=== PATIENT | female | born 1985 | race Caucasian/White ===

== ENCOUNTER 2021-04-01 14:15 | Observation (INO) | payer OTHER ==
[2021-04-01 15:34] LABS: Bilirubin Neg (Negative); Blood, Urine Negative (Negative); Clarity Slightly Cloudy (Clear); Glucose, Urine (Dipstick) Normal (Negative); Ketone, Urine 50 mg/dL (Negative); Leukocyte 25 (Negative); Nitrite Negative (Negative); Protein, Urine (Dipstick) 15 mg/dl (Neg-Trace); Specific Gravity, Urine 1.005 (1.002-1.036); Urobilinogen Normal mg/dL (Less than 2)
[2021-04-01 15:36] LABS: #Monocytes 0.4 10x3/uL (0.0-1.1); #Neutrophils 6.3 10x3/uL (1.5-8.4); %Basophils 0.3 % (0.0-2.0); %Eosinophils 0.1 % (0.0-6.0); %Lymphocytes 13.5 % (18.0-47.0); %Monocytes 4.8 % (0.0-10.0); %Neutrophils 79.9 % (40.0-75.0); Hemoglobin 13.8 g/dL (12.0-15.5); Mean Corpuscular HGB CONC 33.6 g/dL (32.0-36.0); Mean Corpuscular Hemoglobin 30.1 pg (27.0-33.0); Mean Corpuscular Volume 89.5 fl (81.6-98.3); Mean Platelet Volume 10.6 fl (7.4-10.4); Platelet Count 191 10x3/uL (150-450); RBC Distribution Width 13.5 % (11.5-14.5); Red Blood Cell (RBC) Count 4.59 10x6/uL (3.90-5.03); White Blood Cell (WBC) Count 7.9 10x3/uL (3.5-10.5)
[2021-04-01] MEDS ORDERED: Ondansetron ODT 4 MG TAB PO PRN (15:36)
[2021-04-01] MEDS ORDERED: hydrALAZINE 20 MG/ML VIAL SLOW IVP PRN (15:36)
[2021-04-01 15:43] LABS: Bacteria/HPF Rare-Few HPF (None Seen); Mucous/LPF Rare LPF (<2+); RBC/HPF 0-3 HPF (0-3); Transitional Epithelial 0-3 HPF (None Seen); WBC/HPF 0-3 HPF (0-3)
[2021-04-01 15:49] LABS: ALT (SGPT) 259 U/L (8-55); AST (SGOT) 218 U/L (5-34); Albumin 3.1 g/dL (3.5-5.0); Alkaline Phosphatase 168 U/L (40-110); Anion Gap 15 mmol/L (10-20); BUN (Urea Nitrogen) 8 mg/dL (7.0-18.7); Bilirubin, Total 0.5 mg/dL (0.2-1.2); Calc. Creatinine Clearance 0 mL/min (70-130); Calcium 8.9 mg/dL (7.8-10.44); Carbon Dioxide 22 mmol/L (22-29); Chloride 101 mmol/L (98-107); Globulin 3.2 g/dL (2.4-3.5); Glucose 89 mg/dL (70-105); Magnesium 1.5 mg/dL (1.6-2.6); Potassium 3.9 mmol/L (3.5-5.1); Protein, Total 6.3 g/dL (6.0-8.3); Sodium 134 mmol/L (136-145)
[2021-04-01] MEDS ORDERED: Ventolin HFA Inhaler 60 PUFF INHALER INH PRN (16:04)
[2021-04-01] MEDS ORDERED: guaiFENesin/Codeine Phosphate 100 mg/10 mg 5 ml UD Cup PO PRN (16:04)
[2021-04-01] MEDS ORDERED: Magnesium 2 GM/50 ML 2 GM in Premix Bag 1 BAG IVPB SCH (20:00)
[2021-04-01 20:22] VITALS: BMI 39.5
[2021-04-01] MEDS: Acetaminophen 325 MG TAB PO PRN (20:58)
[2021-04-01] MEDS ORDERED: guaiFENesin/Dextromethorphan 10 ML UDCUP PO PRN (21:17)
[2021-04-01] MEDS: Benzonatate 100 MG CAP PO PRN (21:55)
[2021-04-02] MEDS ORDERED: Dexamethasone 4 mg/ml Vial IM SCH ×2 (00:30→09:00)
[2021-04-02] MEDS: Acetaminophen 325 MG TAB PO PRN ×3 (05:29→22:15)
[2021-04-02] MEDS: Benzonatate 100 MG CAP PO PRN ×2 (05:30→22:58)
[2021-04-02 06:20] LABS: ALT (SGPT) 227 U/L (8-55); AST (SGOT) 183 U/L (5-34); Albumin 2.9 g/dL (3.5-5.0); Alkaline Phosphatase 170 U/L (40-110); Anion Gap 14 mmol/L (10-20); BUN (Urea Nitrogen) 6 mg/dL (7.0-18.7); Bilirubin, Total 0.6 mg/dL (0.2-1.2); Calc. Creatinine Clearance 205 mL/min (70-130); Calcium 8.3 mg/dL (7.8-10.44); Carbon Dioxide 18 mmol/L (22-29); Chloride 108 mmol/L (98-107); Globulin 2.9 g/dL (2.4-3.5); Glucose 133 mg/dL (70-105); Magnesium 1.9 mg/dL (1.6-2.6); Potassium 3.8 mmol/L (3.5-5.1); Protein, Total 5.8 g/dL (6.0-8.3); Sodium 136 mmol/L (136-145)
[2021-04-02] MEDS: Enoxaparin Sodium 40 MG/0.4 ML SYRINGE SC SCH (08:18)
[2021-04-02] MEDS: Azithromycin 250 MG TAB PO SCH (08:18)
[2021-04-02] MEDS ORDERED: Fluconazole 100 MG TAB PO SCH (18:00)
[2021-04-02] MEDS ORDERED: Docusate Calcium (SURFAK) 240 MG CAP PO PRN (18:04)
[2021-04-02] MEDS ORDERED: HYDROcodone/Acetaminophen 5/325 mg Tablet PO SCH (18:30)
[2021-04-02] MEDS ORDERED: HYDROcodone/Acetaminophen 5/325 mg Tablet PO PRN (18:45)
[2021-04-02] MEDS ORDERED: Insulin Regular 300 UNITS/3 ML VIAL SC SCH (21:30)
[2021-04-03] MEDS: Acetaminophen 325 MG TAB PO PRN ×3 (02:00→11:11)
[2021-04-03] MEDS ORDERED: Dexamethasone 4 mg/ml Vial IM SCH (02:00)
[2021-04-03] MEDS ORDERED: Dexamethasone 4 MG TAB PO SCH (02:00)
[2021-04-03 08:34] VITALS: BP 118/59; TEMP 98
[2021-04-03] MEDS: Azithromycin 250 MG TAB PO SCH (08:36)
[2021-04-03] MEDS: Enoxaparin Sodium 40 MG/0.4 ML SYRINGE SC SCH (08:37)
[2021-04-03] MEDS ORDERED: Cholecalciferol (Vitamin D3) 400 UNITS TAB PO SCH (09:00)
[2021-04-03] MEDS ORDERED: Ascorbic Acid 500 mg Chewable Tablet PO SCH (09:00)
[2021-04-03] MEDS ORDERED: Zinc Sulfate 220 MG CAP PO SCH (09:00)
[2021-04-03 09:14] LABS: ALT (SGPT) 259 U/L (8-55); AST (SGOT) 211 U/L (5-34); Albumin 2.9 g/dL (3.5-5.0); Alkaline Phosphatase 165 U/L (40-110); Anion Gap 15 mmol/L (10-20); BUN (Urea Nitrogen) 6 mg/dL (7.0-18.7); Bilirubin, Total 0.6 mg/dL (0.2-1.2); Calc. Creatinine Clearance 188 mL/min (70-130); Calcium 8.9 mg/dL (7.8-10.44); Carbon Dioxide 21 mmol/L (22-29); Chloride 107 mmol/L (98-107); Globulin 2.9 g/dL (2.4-3.5); Glucose 150 mg/dL (70-105); Protein, Total 5.8 g/dL (6.0-8.3); Sodium 139 mmol/L (136-145)
[2021-04-03] MEDS ORDERED: hydrALAZINE 20 MG/ML VIAL SLOW IVP PRN (16:06)
== END 2021-04-03 14:27 | disposition home or self-care (01) ==
LOC: CSHERS 14:15 → CSHANTE 19:23
PROVIDERS: ADMIT Student in an Organized Health Care Education/Training Program; ATTEND Student in an Organized Health Care Education/Training Program
DX: O98.513 Other viral diseases complicating pregnancy, third trimester (principal); O99.513 Diseases of the respiratory system complicating pregnancy, third trimester; O99.891 Other specified diseases and conditions complicating pregnancy; O99.283 Endocrine, nutritional and metabolic diseases complicating pregnancy, third trimester; O99.213 Obesity complicating pregnancy, third trimester; U07.1 COVID-19; J96.01 Acute respiratory failure with hypoxia; J12.82 Pneumonia due to coronavirus disease 2019; R74.01 Elevation of levels of liver transaminase levels; E83.42 Hypomagnesemia; Z3A.31 31 weeks gestation of pregnancy; Z88.5 Allergy status to narcotic agent; Z79.82 Long term (current) use of aspirin; Z79.899 Other long term (current) drug therapy; Z87.59 Personal history of other complications of pregnancy, childbirth and the puerperium
CPT/HCPCS: 36415; 36416; 71045; 80053; 81003; 81015; 82728; 83735; 84145; 85025; 86140; 93005; 94760; 96372; 96374; G0378; J1100; J1650; J1815; J3475; J7620; J8540